=== PATIENT | male | born 1950 | race African-American/Black ===

== ENCOUNTER 2016-10-23 15:01 | Observation (INO) | payer MEDICARE, OTHER ==
[2016-10-23 15:09] VITALS: BMI 36.6
--- NOTE | 2016-10-23 15:21 | PDOC ---
History of Present Illness - General Chief Complaint: Nasal Bleeding Stated Complaint: NASAL BLEED Time Seen by Provider: 10/23/16 15:20 History Source: Patient - History of Present Illness Initial Comments: 10/23/16 15:44 CC: Acute onset of B/L epistaxis Patient is a 65 y.o. male with a PMH of B/L knee arthritis who presents to our facility today with a c/o of B/L epistaxis. Patient notes he was sitting at a chair in his workplace when he noticed his nose was bleeding. Patient denies any previous similar incidents as well as any recent facial trauma, lightheadedness, shortness of breath or chest pain. Patient notes he has no established PCP and has not seen a doctor for years. Past History - Past Medical History Allergies/Adverse Reactions: Allergies Allergy/AdvReac Type Severity Reaction Status Date / Time No Known Allergies Allergy Verified 10/23/16 15:06 Home Medications: Ambulatory Orders Aspirin Coated [Ecotrin -] 81 mg PO DAILY #30 tab 10/24/16 Nifedipine ER [Procardia XL -] 30 mg PO DAILY #30 tab 10/24/16 - Psycho/Social/Smoking Cessation Hx Anxiety: No Suicidal Ideation: No Smoking History: Never smoked Have you smoked in the past 12 months: No Information on smoking cessation initiated: No Hx Alcohol Use: No Drug/Substance Use Hx: No Substance Use Type: None Review of Systems - Review of Systems Constitutional: No: Chills, Diaphoresis, Fever, Unexplained wgt Loss HEENTM: No: Blurred Vision, Double Vision, Tinnitus, Hearing Loss Respiratory: No: Orthopnea, Shortness of Breath, Stridor, Wheezing Cardiac (ROS): No: See HPI, Chest Pain, Edema, Irregular Heart Rate, Lightheadedness ABD/GI: No: Constipated, Diarrhea Musculoskeletal: Yes: Joint Pain Neurological: No: Headache Psychiatric: No: Anxiety, Depression All Other Systems: Reviewed and Negative *Physical Exam - Vital Signs Last Vital Signs Temp Pulse Resp BP Pulse Ox 97.8 F 96 H 18 190/125 100 10/23/16 15:07 10/23/16 15:07 10/23/16 15:07 10/23/16 15:07 10/23/16 15:07 - Physical Exam General Appearance: Yes: Nourished, Appropriately Dressed HEENT: positive: EOMI, LYUDMILA, Other (B/L epistaxsis L > R) Neck: positive: Trachea midline, Supple Respiratory/Chest: positive: Lungs Clear, Normal Breath Sounds Cardiovascular: positive: Regular Rhythm, Regular Rate, S1, S2, Other (Minor systolic murmur appreciated in R 2nd intercostal space) Gastrointestinal/Abdominal: positive: Normal Bowel Sounds, Soft Extremity: positive: Normal Capillary Refill, Normal Inspection Integumentary: positive: Normal Color, Dry, Warm ED Treatment Course - LABORATORY CBC & Chemistry Diagram: 10/24/16 06:00 10/24/16 06:00 Medical Decision Making - Medical Decision Making 10/23/16 20:28 Patient is a 65 y.o. male with no known PMH and limited h/o primary medical care who presented to the ED c/o unremittent epistaxis L>R. During course of admission patient's bleeding resolved with pressure however was intermittently hypertensive (SBP 170's/DBP 90's-120's) and given Nifedipine (30 mg OTD). As patient had a uncertain medical history, broad cardiac work-up was pursued to rule out cardiac etiology. Labs were significant for CKMB 4.8 and CK of 1535 with a Troponin of 0.11. EKG showed T wave inversions in lateral leads and CXR showed no acute pathology. Bedside cardiac U/S showed normal contractility and likely L sided hypertrophy. Cardiology consulted and recommended inpatient admission. *DC/Admit/Observation/Transfer Diagnosis at time of Disposition: Elevated troponin - Discharge Dispostion Condition at time of disposition: Improved Admit: Yes - Prescriptions - Attestations Physician Attestion: 10/23/16 17:52 I attest that the procedures as documented in this note reflect my medical decision making. - Dr. Zayda Snow
--- NOTE | 2016-10-23 15:25 | PDOC ---
Attending Attestation - Resident Resident Name: Zayda Snow - ED Attending Attestation I have performed the following: I have examined & evaluated the patient, The case was reviewed & discussed with the resident, I agree w/resident's findings & plan, Exceptions are as noted - HPI HPI: 10/23/16 17:27 This is a 65 yo M presenting to the ER with epistaxis Left Nare No headache No chest pain No shortness of breath - Physicial Exam PE: 10/23/16 17:29 RRR (+) Left nare bleeding CTA No abd pain Left nare packed with gauze THis has stopped bleeding Pt has stable clot, no longer bleeding No blood noted in posterior pharynx Will hold for not with RhinoRocket - Medical Decision Making 10/23/16 17:26 Laboratory Tests 10/23/16 10/23/16 10/23/16 15:30 15:30 15:30 WBC 6.7 Hgb 15.7 Hct 46.6 Plt Count 219 INR 1.28 H BUN 22 H Creatinine 1.1 Creatine Kinase 1535 H CK-MB (CK-2) 4.859 H Troponin I 0.11 H No more nasal bleeding BP remains elevated 10/23/16 17:34 This is a 65 yo M who has had limited medical care presenting to the ER with epistaxis, HTN and elevated trop Placed on hospitalist service for further evaluation Heart Score/ECG Review - History History: Slightly suspicious - Electrocardiogram EKG: Normal - Age Age: >/= 65 - Risk Factors Risk Factors Heart Score: Yes Hx Hypertension, Yes Hx Obesity Based on the list above the patient has:: 1-2 risk factors - Troponin Troponin: 1-3x normal limit - Score Heart Score - Total: 4
[2016-10-23] MEDS ORDERED: SODIUM CHLORIDE 1,000 ML IV ONE (15:33)
[2016-10-23 15:52] LABS: BASOPHIL 0.7 % (0-2.0); EOSINOPHIL 1.1 % (0-4.5); MCHC 33.6 g/dl (32.0-35.9); MEAN CELL VOLUME 89.3 fl (80-96); NEUTROPHILS 53.2 % (42.8-82.8); PLATELET COUNT 219 K/MM3 (134-434); RDW 14.3 % (11.9-15.9); WHITE BLOOD COUNT 6.7 K/mm3 (4.0-10.0)
[2016-10-23] MEDS ORDERED: ACETAMINOPHEN 325 MG TABLET (FP) PO ONE (16:01)
[2016-10-23 16:08] LABS: INR 1.28 (0.82-1.09); PROTHROMBIN TIME (PATIENT) 14.1 SEC (9.98-11.88)
[2016-10-23 16:18] LABS: ALBUMIN 4.2 g/dl (3.4-5.0); ANION GAP 11 (8-16); BILIRUBIN,TOTAL 0.9 mg/dL (0.2-1.0); CALCIUM 9.5 mg/dL (8.5-10.1); CO2 28 mmol/L (21-32); CREATININE 1.1 mg/dL (0.7-1.3); GLUCOSE,RANDOM 95 mg/dL (74-106); SGOT/AST 41 U/L (15-37); SGPT/ALT 24 U/L (12-78); TOT PROT 7.4 g/dl (6.4-8.2)
[2016-10-23 16:30] LABS: ALK PHOS 68 U/L (45-117); TROPONIN I 0.11 ng/ml (0.00-0.05)
[2016-10-23 16:31] LABS: CPK 1535 IU/L (39-308)
[2016-10-23] MEDS ORDERED: PHENYLEPHRINE HCL 10 MG/1 ML SINGLE DOSE VIAL ONE (16:34)
[2016-10-23] MEDS ORDERED: NIFEdipine 10 MG CAPSULE (FP) ONE (16:49)
[2016-10-23] MEDS: NIFEdipine E.R. 30 MG TABLET (FP) PO SCH (16:51)
[2016-10-23] MEDS ORDERED: LABETALOL HCL 5 MG/1 ML (100MG/20 ML VIAL) IVPUSH ONE (17:26)
--- NOTE | 2016-10-23 19:08 | HP ---
Admitting History and Physical - Primary Care Physician PCP: No PCP - Admission Chief Complaint: Epistaxis History of Present Illness: 65 y.o. M with no known PMH presenting to the ED with epistaxis. Patient woke up this AM and took a motrin for knee OA. Patient went to work around 2 pm and took a midol. Patient began having profuse epistaxis. He tried to stop the bleeding on his own and since he was unable to, patient came to the ED. Patient denies any chest pain, shortness of breath, nausea, vomiting, diarrhea, headache , vision changes. Patient takes no other medications and takes no blood thinners. In the ER: - Patient was found to have hypertensive urgency and tachycardia - Patient was given labetolol and started on nifedipine - Bleeding was stopped. 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 History of Recent Travel: No Home Medications - Allergies Allergies/Adverse Reactions: Allergies Allergy/AdvReac Type Severity Reaction Status Date / Time No Known Allergies Allergy Verified 10/23/16 15:06 - Home Medications Home Medications: Ambulatory Orders NK [No Known Home Medication] 10/23/16 Family Disease History - Family Disease History Family History: Unremarkable Review of Systems - Review of Systems Constitutional: reports: No Symptoms Eyes: reports: No Symptoms HENT: reports: Epistaxis Neck: reports: No Symptoms Cardiovascular: reports: No Symptoms Respiratory: reports: No Symptoms Gastrointestinal: reports: No Symptoms Genitourinary: reports: No Symptoms Breasts: reports: No Symptoms Reported Musculoskeletal: reports: No Symptoms Integumentary: reports: No Symptoms Neurological: reports: No Symptoms Endocrine: reports: No Symptoms Hematology/Lymphatic: reports: Excessive Bleeding Psychiatric: reports: No Symptoms Physical Examination Vital Signs: Vital Signs Temperature 98.8 F 10/23/16 18:03 Pulse Rate 68 10/23/16 18:03 Respiratory Rate 20 10/23/16 18:03 Blood Pressure 113/67 10/23/16 18:09 O2 Sat by Pulse Oximetry (%) 98 10/23/16 18:03 Constitutional: Yes: Well Nourished, No Distress, Calm Eyes: Yes: WNL, Conjunctiva Clear, EOM Intact HENT: Yes: Atraumatic, Normocephalic, Epistaxis Neck: Yes: WNL, Supple, Trachea Midline Cardiovascular: Yes: WNL, Regular Rate and Rhythm, Murmur (Systolic Ejection Murmur over Right Sternal Border) Respiratory: Yes: WNL, Regular, CTA Bilaterally Gastrointestinal: Yes: WNL, Normal Bowel Sounds, Soft, Abdomen, Obese Musculoskeletal: Yes: WNL Extremities: Yes: WNL Peripheral Pulses: Left Radial: 2+, Right Radial: 2+, Left Doralis Pedis: 2+, Right Dorsalis Pedis: 2+ Integumentary: Yes: WNL Neurological: Yes: WNL, Alert, Oriented ...Motor Strength: WNL Psychiatric: Yes: WNL, Alert, Oriented Imaging - Results Chest X-ray: Report Reviewed EKG: Report Reviewed Assessment/Plan 65 y.o. M with no known PMH presented with epistaxis admitted for hypertensive urgency #Hypertensive Urgency -Admit to tele-obs -Given labetolol in ED -BP wnl -Continue nifedipine 30 mg po daily -Echocardiogram pending -Due to no known pmh and no pcp f/u, will get A1c, Lipid panel, and TSH -U tox pending -1st trop positive, Trending troponins and EKG -Will repeat cbc and hgb with troponins FEN/GI -None -wnl -Sodium Controlled Diet PPx: DVT- Heparin 5000 u bid GI- None Dispo: pending echo, labs, troponins. Cardiology will evaluate in the AM Visit type - Emergency Visit Emergency Visit: Yes ED Registration Date: 10/23/16 Care time: The patient presented to the Emergency Department on the above date and was hospitalized for further evaluation of their emergent condition. - New Patient This patient is new to me today: Yes Date on this admission: 10/23/16 - Critical Care Critical Care patient: No
--- NOTE | 2016-10-23 19:13 | PN ---
Teaching Attending Note Name of Resident: Marshal Munguia ATTENDING PHYSICIAN STATEMENT I saw and evaluated the patient. I reviewed the resident's note and discussed the case with the resident. I agree with the resident's findings and plan as documented. SUBJECTIVE:65yo M with no PMH c/o epistaxis. pt states he took motrin 800mg in the AM for ankle pain. several hours later he developed sudden onset of epistaxis. applying pressure did not resolve the bleeding which prompted him to come to the ER. noted in the ER for pt to have HTN. labetolol IVP and nifedipine 30mg was given with improvement. denies CP, blurred vision, SOB, dyspnea on exertion, N/V/C/D. has not seen a PMD in 20+years. does not take any medications (OTC or prescribed), denies illicit drug use epistaxis resolved in ER with direct pressure. pt refused nasal rocket OBJECTIVE: Last Vital Signs Temp Pulse Resp BP Pulse Ox 98.8 F 68 20 113/67 98 10/23/16 18:03 10/23/16 18:03 10/23/16 18:03 10/23/16 18:09 10/23/16 18:03 General NAD HEENT dried blood in the nares CV S1 S2 + systolic murmur Lungs CTA B/L no wheezing/rales/rhonchi Abdomen soft NT/ND obese Extremities no pedal edema ASSESSMENT AND PLAN: 65yo M with no PMH presented to the ER with epistaxis and found to have HTN 1. HTN urgency- tele observation. continuous cardiac monitoring. epistaxis likely due to uncontrolled HTN. now improved. EKG showing T wave inversions in V4-V6. trop 0.11. bedside echo showing hypertrophy but normal contractility. will consult cardiology, will trend cardiac enzymes and EKG Q6H. cont nifedipine. titrate to optimize control. start asa 81mg. check lipid panel, A1c and TSH. wound benefit from official echo. will need stress test inpatient vs outpatient per cardiology 2. Elevated CK- check myoglobin r/o rhabdo 3. JESSIKA- elevated troponin. possible dehydration. gentle hydration 4. +systolic murmur-no hx of murmur. obtain official echo 5. DVT ppx- EAM
[2016-10-23 19:59] LABS: MCH 29.9 pg (25.7-33.7); MCHC 33.8 g/dl (32.0-35.9); MEAN CELL VOLUME 88.4 fl (80-96); MEAN PLT VOLUME 8.2 fl (7.5-11.1); PLATELET COUNT 205 K/MM3 (134-434); RDW 14.4 % (11.9-15.9); WHITE BLOOD COUNT 6.9 K/mm3 (4.0-10.0)
--- NOTE | 2016-10-23 20:36 | HP ---
CHIEF COMPLAINT: epistaxis PCP: none HISTORY OF PRESENT ILLNESS: 65 yr old man with no medical follow-up presents with spontanous b/l nostril epistaxis since this afternoon. He sat down to drink coffee and felt a funny taste in his mouth and notes left nostril was bleeding, he was unable to stop it and was brought to the ED by a friend. Was taking NSAIDs for knee arthritic pain. he gets evaluated at work twice yearly with vision exam, heart/lung/abdomen exam with BP check yearly, was never told he had any problems. never been told he had a murmur. Denies facial trauma, noxious aerosolized chemical exposure, chest pain, sob, headache. ER course was notable for: (1) EKG with T-wave inversions in lateral leads (2) cxy: mild perihilar increased lung markings, mild elevation of the right hemidiapragm, no acute cardiopulmonary disease present Social History: denies toxic habits PHYSICAL EXAMINATION Vital Signs - 24 hr 10/23/16 10/23/16 10/23/16 18:03 18:09 19:32 Temperature 98.8 F 98.8 F Pulse Rate 87 Pulse Rate [ 68 Right Radial] Respiratory 20 18 Rate Blood Pressure 146/86 Blood Pressure 146/70 113/67 [Left Arm] O2 Sat by Pulse 98 99 Oximetry (%) GENERAL: Awake, alert, and fully oriented, in no acute distress. HEAD: Normal with no signs of trauma. EYES: Pupils equal, round and reactive to light, extraocular movements intact, sclera anicteric, conjunctiva clear. No lid lag. EARS, NOSE, THROAT: nares with dried blood b/l, oropharynx clear without exudates. dry mucous membranes. LUNGS: Breath sounds equal, clear to auscultation bilaterally. No wheezes, and no crackles. No accessory muscle use. HEART: Regular rate and rhythm, soft systolic murmur heard in the right upper sternal border and apex, ABDOMEN: Soft, nontender, +distended, normoactive bowel sounds, no guarding, no rebound, no masses. No hepatomegaly or splenomegaly. ASSESSMENT/PLAN: 65 yr old man with medical follow-up presents with epistaxis of unknown etiology , new onset heart murmur and EKG with t-wave inversions/elevated trops placed in observation for further evaluation. 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 - New Patient This patient is new to me today: Yes Date on this admission: 10/23/16 - Critical Care Critical Care patient: No
[2016-10-23] MEDS: ASPIRIN COATED 81 MG TABLET.EC PO SCH (21:13)
[2016-10-23] MEDS ORDERED: HEPARIN NA (PORCINE) 5,000 UNITS/ML 1ML VIAL SQ SCH (22:00)
[2016-10-23] MEDS ORDERED: SODIUM CHLORIDE 1,000 ML IV SCH (22:45)
[2016-10-23] MEDS: SODIUM CHLORIDE 1,000 ML IV SCH (23:43)
[2016-10-24] MEDS ORDERED: ACETAMINOPHEN 1000 MG/100 ML VIAL (NON FORMULARY) IVPB ONE (02:02)
[2016-10-24 02:18] LABS: URINE APPEARANCE CLEAR; URINE BILIRUBIN NEGATIVE (NEGATIVE); URINE BLOOD NEGATIVE (NEGATIVE); URINE COLOR YELLOW; URINE GLUCOSE (UA) NEGATIVE (NEGATIVE); URINE KETONE TRACE (NEGATIVE); URINE LEUK ESTERASE NEGATIVE (NEGATIVE); URINE NITRITE NEGATIVE (NEGATIVE); URINE PROTEIN NEGATIVE (NEGATIVE)
[2016-10-24 02:37] LABS: URINE MARIJUANA THC NEGATIVE ng/ml (CUTOFF=50)
[2016-10-24 02:55] LABS: TROPONIN I 0.11 ng/ml (0.00-0.05)
--- NOTE | 2016-10-24 07:08 | PN ---
Progress Note (short form) - Note Progress Note: currently asymptomatic.epistaxis resolved. continues to not have CP, SOB, fever , chills, N/V/C/D Current Medications Generic Name Dose Route Start Last Admin Trade Name Saray PRN Reason Stop Dose Admin Aspirin 81 mg 10/23/16 19:15 10/23/16 21:13 Ecotrin - PO 81 mg DAILY CHAY Administration Sodium Chloride 1,000 mls @ 100 mls/hr 10/23/16 22:45 10/23/16 23:43 Normal Saline - IV Not Given ASDIR CHAY Nifedipine 30 mg 10/23/16 16:45 10/23/16 16:51 Procardia Xl - PO 30 mg DAILY CHAY Administration Last Vital Signs Temp Pulse Resp BP Pulse Ox 98.4 F 68 18 147/86 99 10/24/16 06:00 10/24/16 06:00 10/24/16 06:00 10/24/16 06:00 10/23/16 19:32 General NAD HEENT no bleeding from nares CV S1 S2 + systolic murmur Lungs CTA B/L no wheezing/rales/rhonchi Abdomen soft NT/ND obese Extremities no pedal edema CBCD WBC 5.4 K/mm3 (4.0-10.0) 10/24/16 06:00 RBC 4.72 M/mm3 (4.00-5.60) 10/24/16 06:00 Hgb 14.1 GM/dL (11.7-16.9) 10/24/16 06:00 Hct 41.8 % (35.4-49) 10/24/16 06:00 MCV 88.5 fl (80-96) 10/24/16 06:00 MCHC 33.8 g/dl (32.0-35.9) 10/24/16 06:00 RDW 14.4 % (11.9-15.9) 10/24/16 06:00 Plt Count 191 K/MM3 (134-434) 10/24/16 06:00 MPV 8.1 fl (7.5-11.1) 10/24/16 06:00 CMP Sodium 138 mmol/L (136-145) 10/24/16 06:00 Potassium 4.0 mmol/L (3.5-5.1) 10/24/16 06:00 Chloride 103 mmol/L (98-107) 10/24/16 06:00 Carbon Dioxide 29 mmol/L (21-32) 10/24/16 06:00 Anion Gap 6 (8-16) L 10/24/16 06:00 BUN 19 mg/dL (7-18) H 10/24/16 06:00 Creatinine 0.8 mg/dL (0.7-1.3) D 10/24/16 06:00 Creat Clearance w eGFR > 60 (>60) 10/24/16 06:00 Calcium 9.1 mg/dL (8.5-10.1) 10/24/16 06:00 Total Bilirubin 0.9 mg/dL (0.2-1.0) 10/24/16 06:00 AST 29 U/L (15-37) D 10/24/16 06:00 ALT 22 U/L (12-78) 10/24/16 06:00 Alkaline Phosphatase 60 U/L (45-117) 10/24/16 06:00 Total Protein 6.4 g/dl (6.4-8.2) 10/24/16 06:00 Albumin 3.5 g/dl (3.4-5.0) 10/24/16 06:00 ASSESSMENT AND PLAN: 65yo M with no PMH presented to the ER with epistaxis and found to have HTN 1. HTN urgency-improved. troponin leak stable at 0.11. no ekg changes, no events on monitor. cont current management. will d/w cardio outpt vs inpatient cardiac workup as pt requesting to go home. 2. Elevated CK- likley rhabdo. trending down 3. JESSIKA- possible dehydration. resolved 4. +systolic murmur-no hx of murmur. obtain official echo 5. DVT ppx- EAM Visit type - Emergency Visit Emergency Visit: Yes ED Registration Date: 10/23/16 Care time: The patient presented to the Emergency Department on the above date and was hospitalized for further evaluation of their emergent condition. - New Patient This patient is new to me today: No - Critical Care Critical Care patient: No - Discharge Referral Referred to [facility] No
[2016-10-24 07:48] LABS: BASOPHIL 0.6 % (0-2.0); EOSINOPHIL 2.3 % (0-4.5); MCH 29.9 pg (25.7-33.7); MCHC 33.8 g/dl (32.0-35.9); MEAN CELL VOLUME 88.5 fl (80-96); MEAN PLT VOLUME 8.1 fl (7.5-11.1); NEUTROPHILS 55.1 % (42.8-82.8); PLATELET COUNT 191 K/MM3 (134-434); RDW 14.4 % (11.9-15.9); WHITE BLOOD COUNT 5.4 K/mm3 (4.0-10.0)
[2016-10-24 08:14] LABS: CHOLESTEROL 140 mg/dL (50-200); LDL CHOLESTEROL (ONLY SJRH) 79 mg/dL (5-100)
[2016-10-24 08:16] LABS: TROPONIN I 0.1 ng/ml (0.00-0.05)
[2016-10-24 08:24] LABS: ALBUMIN 3.5 g/dl (3.4-5.0); ALK PHOS 60 U/L (45-117); ANION GAP 6 (8-16); BILIRUBIN,TOTAL 0.9 mg/dL (0.2-1.0); CALCIUM 9.1 mg/dL (8.5-10.1); CO2 29 mmol/L (21-32); CREATININE 0.8 mg/dL (0.7-1.3); GLUCOSE,RANDOM 82 mg/dL (74-106); SGOT/AST 29 U/L (15-37); SGPT/ALT 22 U/L (12-78); TOT PROT 6.4 g/dl (6.4-8.2)
[2016-10-24] MEDS: NIFEdipine E.R. 30 MG TABLET (FP) PO SCH (09:02)
[2016-10-24] MEDS: ASPIRIN COATED 81 MG TABLET.EC PO SCH (09:03)
[2016-10-24] MEDS: SODIUM CHLORIDE 1,000 ML IV SCH ×2 (09:04→23:15)
--- NOTE | 2016-10-24 14:43 | CON.CARD ---
Cardiology Consult (text) - Consultation Consultation Note: CC: hypertensive urgency 65 yo with no significant pmhx presented for evaluation of epistaxis and found to have hypertensive urgency/abnormal cardiac enzymes. Ambulatory Orders Aspirin Coated [Ecotrin -] 81 mg PO DAILY #30 tab 10/24/16 Nifedipine ER [Procardia XL -] 30 mg PO DAILY #30 tab 10/24/16 Current Medications Aspirin (Ecotrin -) 81 mg PO DAILY [facility] Last Admin: 10/24/16 09:03 Dose: 81 mg Sodium Chloride (Normal Saline -) 1,000 mls @ 100 mls/hr IV ASDIR [facility] Last Admin: 10/24/16 09:04 Dose: 100 mls/hr Nifedipine (Procardia Xl -) 30 mg PO DAILY [facility] Last Admin: 10/24/16 09:02 Dose: 30 mg Vital Signs - 24 hr 10/23/16 10/23/16 10/23/16 15:07 18:03 18:09 Temperature 97.8 F 98.8 F Pulse Rate 96 H Pulse Rate [ 68 Right Radial] Respiratory 18 20 Rate Blood Pressure 190/125 Blood Pressure 146/70 113/67 [Left Arm] O2 Sat by Pulse 100 98 Oximetry (%) 10/23/16 10/24/16 10/24/16 19:32 02:00 06:00 Temperature 98.8 F 98.3 F 98.4 F Pulse Rate 87 79 68 Pulse Rate [ Right Radial] Respiratory 18 18 18 Rate Blood Pressure 146/86 129/77 147/86 Blood Pressure [Left Arm] O2 Sat by Pulse 99 Oximetry (%) 10/24/16 10/24/16 07:53 08:00 Temperature 98.1 F Pulse Rate 70 Pulse Rate [ Right Radial] Respiratory 18 20 Rate Blood Pressure 158/90 Blood Pressure [Left Arm] O2 Sat by Pulse 96 Oximetry (%) Intake & Output 10/22/16 10/23/16 10/24/16 10/25/16 07:59 07:59 07:59 07:59 Intake Total 75 Balance 75 Weight 270 lb CBC, BMP 10/24/16 06:00 10/24/16 06:00 Laboratory Tests 10/23/16 10/23/16 10/23/16 15:30 15:30 19:30 INR 1.28 H Hemoglobin A1c % Total Bilirubin 0.9 AST 41 H ALT 24 Alkaline Phosphatase 68 Creatine Kinase 1535 H CK-MB (CK-2) 4.859 H Troponin I 0.11 H 0.11 H Albumin Triglycerides Cholesterol Total LDL Cholesterol HDL Cholesterol TSH 10/24/16 10/24/16 10/24/16 01:30 06:00 06:00 INR Hemoglobin A1c % Total Bilirubin AST ALT Alkaline Phosphatase Creatine Kinase 1072 H CK-MB (CK-2) 4.515 H Troponin I 0.11 H Albumin 3.5 Triglycerides 60 Cholesterol 140 Total LDL Cholesterol 79 HDL Cholesterol 48 TSH 0.90 10/24/16 10/24/16 06:00 06:00 INR Hemoglobin A1c % 6.0 Total Bilirubin AST ALT Alkaline Phosphatase Creatine Kinase 886 H CK-MB (CK-2) 3.912 H Troponin I 0.10 H Albumin Triglycerides Cholesterol Total LDL Cholesterol HDL Cholesterol TSH tele ekg 10/23, 10/24. SR pac's. prolonged qtc, anterolateral twi's. hypertensive urgency abnormal cardiac enzymes prolonged qt - abnormal telemetery with frequent pac's. If bp remains elevated will start coreg tonight. Monitor for arrhythmia on telemetery - will likely not need stress test, but may need echo.
--- NOTE | 2016-10-24 14:46 | EKG ---
Test Reason : Blood Pressure : / mmHG Vent. Rate : 098 BPM Atrial Rate : 098 BPM P-R Int : 180 ms QRS Dur : 092 ms QT Int : 386 ms P-R-T Axes : 053 036 134 degrees QTc Int : 492 ms SINUS RHYTHM WITH PREMATURE ATRIAL COMPLEXES T WAVE ABNORMALITY, CONSIDER LATERAL ISCHEMIA PROLONGED QT ABNORMAL ECG NO PREVIOUS ECGS AVAILABLE Confirmed by TOREY DONNELLY MD ([id number]) on 10/24/2016 2:46:10 PM Referred By: Confirmed By:TOREY DONNELLY MD
--- NOTE | 2016-10-24 14:48 | EKG ---
Test Reason : Blood Pressure : / mmHG Vent. Rate : 092 BPM Atrial Rate : 092 BPM P-R Int : 000 ms QRS Dur : 104 ms QT Int : 402 ms P-R-T Axes : 073 052 143 degrees QTc Int : 497 ms SINUS RHYTHM WITH PREMATURE ATRIAL COMPLEXES T WAVE ABNORMALITY, CONSIDER ANTEROLATERAL ISCHEMIA PROLONGED QT ABNORMAL ECG WHEN COMPARED WITH ECG OF 23-OCT-2016 17:34, NO SIGNIFICANT CHANGE WAS FOUND Confirmed by CONY SCHNEIDER, TOREY ([id number]) on 10/24/2016 2:48:24 PM Referred By: Arnav APONTE Confirmed By:TOREY DONNELLY MD
[2016-10-24] MEDS: CARVEDILOL 3.125 MG TABLET (FP) PO SCH (23:16)
[2016-10-25] MEDS ORDERED: NIFEdipine E.R 60 MG TABLET (UD) PO SCH ×2 (08:15→08:30)
[2016-10-25 08:24] LABS: ANION GAP 6 (8-16); CO2 27 mmol/L (21-32); GLUCOSE,RANDOM 81 mg/dL (74-106)
[2016-10-25 08:27] LABS: CREATININE 0.9 mg/dL (0.7-1.3)
[2016-10-25] MEDS: CARVEDILOL 3.125 MG TABLET (FP) PO SCH (09:23)
[2016-10-25] MEDS: ASPIRIN COATED 81 MG TABLET.EC PO SCH (09:23)
[2016-10-25 09:25] VITALS: BP 180/74; PULSE 98; TEMP 98.7
--- NOTE | 2016-10-25 12:28 | DS ---
Physical Exam: SUBJECTIVE: Patient seen and examined. asymptomatic. denies CP, SOB< fever, chills, epistaxis, N/V/C/D OBJECTIVE: Vital Signs Period Temp Pulse Resp BP Sys/Mccarthy Pulse Ox Last 24 Hr 97.8 F-98.7 F 66-98 17-20 151-180/74-109 96 PHYSICAL EXAM GENERAL: The patient is awake, alert, and fully oriented, in no acute distress. HEAD: Normal with no signs of trauma. EYES: PERRL, extraocular movements intact, sclera anicteric, conjunctiva clear. ENT: Ears normal, nares patent, oropharynx clear without exudates, moist mucous membranes. NECK: Trachea midline, full range of motion, supple. LUNGS: Breath sounds equal, clear to auscultation bilaterally, no wheezes, no crackles, no accessory muscle use. HEART: Regular rate and rhythm, S1, S2 without rub or gallop. +murmur ABDOMEN: Soft, nontender, nondistended, normoactive bowel sounds, no guarding, no rebound, no hepatosplenomegaly, no masses. EXTREMITIES: 2+ pulses, warm, well-perfused, no edema. NEUROLOGICAL: Cranial nerves II through XII grossly intact. Normal speech, gait not observed. PSYCH: Normal mood, normal affect. SKIN: Warm, dry, normal turgor, no rashes or lesions noted. LABS Laboratory Results - last 24 hr 10/25/16 06:30 Sodium 138 Potassium 4.1 Chloride 105 Carbon Dioxide 27 Anion Gap 6 L BUN 14 D Creatinine 0.9 Random Glucose 81 Calcium 9.0 Magnesium 2.0 HOSPITAL COURSE: Date of Admission:10/23/16 Date of Discharge: 10/25/16 Admitting diagnosis: HTN urgency, Epistaxis, systolic murmur, troponin leak Pre hospital course 65 y.o. M with no known PMH presenting to the ED with epistaxis. Patient woke up this AM and took a motrin for knee OA. Patient went to work around 2 pm and took a midol. Patient began having profuse epistaxis. He tried to stop the bleeding on his own and since he was unable to, patient came to the ED. Patient denies any chest pain, shortness of breath, nausea, vomiting, diarrhea, headache , vision changes. Patient takes no other medications and takes no blood thinners. Subsequent hospital course Tele observation. pt had no CP during hospital stay. BP controlled on nifedipine and coreg. epistxis resolved on its own (refused nasal rocket and not a candidate for phenylephrine). and started on asa. troponin leak likely due to HTN peak at 0.11. multiple PVC noted on monitor technician, no abnormal rhythms. cardio evaluated. pt requested to go home with the agreement he would follow up with a doctor in the next 48H for BP check. also understands will need echo to further evaluate murmur. d/c home. Minutes to complete discharge: 40 Discharge Summary Reason For Visit: ELEVATED TROPONIN Current Active Problems Elevated troponin (Acute) Epistaxis not due to trauma (Acute) Hypertensive urgency (Acute) Murmur, heart (Acute) Condition: Improved - Instructions Diet, Activity, Other Instructions: You were admitted to the hospital due your high blood pressure which put some strain on your heart. You have been started on medications for your high blood pressure and medication to protect your heart. Take these medications everyday. Follow a low salt diet You need to see a primary care doctor regularly. Information on one in the area has been provided. See them next week,. you will likely require further adjustment to your medication, You will also need an echocardiogram to assess your heart function. IF you develop chest pain or shortness of breath return to the ER immediately Referrals: Long Ko MD [Staff Physician] - 1 Week (primary care ) - Home Medications Comprehensive Discharge Medication List: Ambulatory Orders Aspirin Coated [Ecotrin -] 81 mg PO DAILY #30 tab 10/24/16 Carvedilol [Coreg -] 3.125 mg PO BID #60 tablet 10/25/16 Nifedipine ER [Procardia XL -] 60 mg PO DAILY #30 tab 10/25/16 This patient is new to me today: No Emergency Visit: Yes ED Registration Date: 10/23/16 Care time: The patient presented to the Emergency Department on the above date and was hospitalized for further evaluation of their emergent condition. Critical Care patient: No - Discharge Referral Referred to [facility] Yes Physician Referral: Long Panchal MD ([facility])
== END 2016-10-25 13:55 | disposition home or self-care (01) ==
LOC: JER 15:01 → JERBED 17:53 → J4W 19:10
PROVIDERS: ADMIT Internal Medicine; ATTEND Internal Medicine
PROC: 2Y41X5Z Packing of Nasal Region using Packing Material (ICD-10-PCS; principal; 2016-10-23)
PROC: 3E033NZ Introduction of Analgesics, Hypnotics, Sedatives into Peripheral Vein, Percutaneous Approach (ICD-10-PCS; 2016-10-23)
PROC: 3E033GC Introduction of Other Therapeutic Substance into Peripheral Vein, Percutaneous Approach (ICD-10-PCS; 2016-10-23)
PROC: 3E0337Z Introduction of Electrolytic and Water Balance Substance into Peripheral Vein, Percutaneous Approach (ICD-10-PCS; 2016-10-23)
DX: I16.0 Hypertensive urgency (principal); R79.89 Other specified abnormal findings of blood chemistry; R04.0 Epistaxis; I10 Essential (primary) hypertension; M17.0 Bilateral primary osteoarthritis of knee; N17.9 Acute kidney failure, unspecified; R01.1 Cardiac murmur, unspecified; Z79.82 Long term (current) use of aspirin
CPT/HCPCS: 36415; 71010-TC; 80048; 80053; 80061; 80307; 81003; 82553; 83036; 83721; 83735; 83874; 84443; 84484; 85025; 85027; 85610; 86850; 86900; 86901; 93005; 93010; 99282-25; G0378

== ENCOUNTER 2018-04-14 12:35 | Emergency (ER) | payer OTHER ==
[2018-04-14 12:43] VITALS: TEMP 97.8; BMI 33.9
[2018-04-14] MEDS ORDERED: amLODIPine BESYLATE 5 MG TABLET (FP) PO ONE (13:39)
[2018-04-14] MEDS ORDERED: amLODIPine BESYLATE 5 MG TABLET (FP) ONE (13:49)
--- NOTE | 2018-04-14 13:50 | PDOC ---
History of Present Illness - General History Source: Patient Exam Limitations: No Limitations <Mayra Payne - Last Filed: 04/14/18 16:18> <Leti Melton - Last Filed: 04/14/18 19:05> - General Chief Complaint: Nasal Bleeding Stated Complaint: NOSE BLEED Time Seen by Provider: 04/14/18 13:21 Past History - Past Medical History COPD: No HTN: Yes - Immunization History Immunization Up to Date: Yes - Suicide/Smoking/Psychosocial Hx Smoking History: Never smoked Have you smoked in the past 12 months: No Hx Alcohol Use: No Drug/Substance Use Hx: No Substance Use Type: None <Mayra Payne - Last Filed: 04/14/18 16:18> <Leti Melton - Last Filed: 04/14/18 19:05> - Past Medical History Allergies/Adverse Reactions: Allergies Allergy/AdvReac Type Severity Reaction Status Date / Time No Known Allergies Allergy Verified 04/14/18 12:39 Home Medications: Ambulatory Orders Aspirin Coated [Ecotrin -] 81 mg PO DAILY #30 tab 10/24/16 Carvedilol [Coreg -] 3.125 mg PO BID #60 tablet 10/25/16 Nifedipine ER [Procardia XL -] 60 mg PO DAILY #30 tab 10/25/16 Cephalexin Monohydrate [Keflex -] 500 mg PO BID #14 capsule 04/14/18 *Physical Exam - Vital Signs Last Vital Signs Temp Pulse Resp BP Pulse Ox 97.8 F 104 H 17 201/104 H 0 L 04/14/18 12:39 04/14/18 12:39 04/14/18 12:39 04/14/18 12:39 04/14/18 12:39 - Physical Exam General Appearance: No: Apparent Distress HEENT: positive: Other (+nasal bleeding from both nares, unable to find location of bleed; small amount of blood in posterior pharynx) Respiratory/Chest: positive: Lungs Clear, Normal Breath Sounds. negative: Respiratory Distress Cardiovascular: positive: Regular Rhythm, Regular Rate, S1, S2. negative: Murmur Neurologic: positive: Alert, Normal Mood/Affect <Mayra Payne - Last Filed: 04/14/18 16:18> - Vital Signs Last Vital Signs Temp Pulse Resp BP Pulse Ox 97.8 F 80 18 155/81 98 04/14/18 12:39 04/14/18 16:38 04/14/18 16:38 04/14/18 16:38 04/14/18 16:38 <Leti Melton - Last Filed: 04/14/18 19:05> Moderate Sedation - Procedure Monitoring Vital Signs: Procedure Monitoring Vital Signs Temperature 97.8 F 04/14/18 12:39 Pulse Rate 104 H 04/14/18 12:39 Respiratory Rate 17 04/14/18 12:39 Blood Pressure 201/104 H 04/14/18 12:39 O2 Sat by Pulse Oximetry (%) 0 L 04/14/18 12:39 <Mayra Payne - Last Filed: 04/14/18 16:18> - Procedure Monitoring Vital Signs: Procedure Monitoring Vital Signs Temperature 97.8 F 04/14/18 12:39 Pulse Rate 80 04/14/18 16:38 Respiratory Rate 18 04/14/18 16:38 Blood Pressure 155/81 04/14/18 16:38 O2 Sat by Pulse Oximetry (%) 98 04/14/18 16:38 <Leti Melton - Last Filed: 04/14/18 19:05> Procedures - Additional Procedures Progress: 04/14/18 19:03 epistaxis control, left nare with rhino rocket. topical analgesia and afrin spray. pt tolerated well, bleeding controlled oral abx keflex for TSS ppx. ENT referral <Leti Melton - Last Filed: 04/14/18 19:05> ED Treatment Course - LABORATORY CBC & Chemistry Diagram: 04/14/18 14:33 <Mayra Payne - Last Filed: 04/14/18 16:18> - LABORATORY CBC & Chemistry Diagram: 04/14/18 14:33 - ADDITIONAL ORDERS Additional order review: 04/14/18 14:33 RBC 3.98 L MCV 88.6 MCHC 34.3 RDW 14.4 MPV 7.8 Neutrophils % 70.2 D Lymphocytes % 20.7 D Monocytes % 7.0 Eosinophils % 1.1 Basophils % 1.0 - Medications Given in the ED: ED Medications Discontinued Medications Generic Name Dose Route Start Last Admin Trade Name Freq PRN Reason Stop Dose Admin Amlodipine Besylate 5 mg 04/14/18 13:39 04/14/18 14:06 Norvasc - PO 04/14/18 13:40 Not Given ONCE ONE Cephalexin HCl 500 mg 04/14/18 14:37 04/14/18 16:05 Keflex - PO 04/14/18 14:38 500 mg ONCE ONE Administration Lidocaine HCl 1 ml 04/14/18 14:01 04/14/18 14:09 Xylocaine 1% INF 04/14/18 14:02 1 ml ONCE ONE Administration Lidocaine/Epinephrine 1 ml 04/14/18 14:04 04/14/18 14:09 Xylocaine 1%-Epi 1:100,000 INF 04/14/18 14:05 1 ml ONCE ONE Administration Oxymetazoline HCl 1 spray 04/14/18 14:01 04/14/18 14:09 Afrin - NS 04/14/18 14:02 1 spray ONCE ONE Administration <Leti Melton - Last Filed: 04/14/18 19:05> Medical Decision Making - Medical Decision Making 67 y/o M with hx of HTN (not on meds) presents with L nare epistaxis that started spontaneously at 12 PM today. Denies trauma, picking nose, sob, cp, n/v , dizziness. Patient is not on any blood thinners. Bleeding starting to improve with pressure Patient also given ice pack Advised to blow out nose and will recheck to see if I can see the area where bleeding is coming from 04/14/18 13:51 After blowing nose, patient had profuse bleeding from L nare Bleeding controlled with nasal packing CBC done shows stable Hgb/Hct Patient given Keflex Repeat BP was 165/96, HR 89 Will refer to ENT Stable for dc 04/14/18 16:18 <Mayra Payne - Last Filed: 04/14/18 16:18> - Medical Decision Making agree with midlevel note as documented face to face eval was made 67 YOM with epistaxis. vitals noted for hypertension, but also presenting with epistaxis H/H stable rhino rocket placed in left nare, hemostasis achieved. topical afrin sprays and lido/epi, good effect keflex x 5 days ENT referral given. repeat VS normalizing, no indication to start meds, f/u HTN with primary return precautions given. avoid triggers for nosebleed. 04/14/18 19:04 <Leti Melton - Last Filed: 04/14/18 19:05> *DC/Admit/Observation/Transfer - Discharge Dispostion Decision to Admit order: No <Mayra Payne - Last Filed: 04/14/18 16:18> <Leti Melton - Last Filed: 04/14/18 19:05> Diagnosis at time of Disposition: Epistaxis - Discharge Dispostion Disposition: HOME Condition at time of disposition: Improved - Prescriptions Prescriptions: Cephalexin Monohydrate [Keflex -] 500 mg PO BID #14 capsule - Referrals Referrals: Amari Alicea MD [Staff Physician] - Call tomorrow Carmelita Grimes MD [Provisional Medical Staff] - 2 Days - Patient Instructions Printed Discharge Instructions: DI for Nosebleed Additional Instructions: Thank you for choosing [facility]. It was a pleasure taking care of you. You had nasal packing done for nosebleed Please take the antibiotics as prescribed Follow-up with ENT tomorrow You were also referred to PCP for further monitoring of your blood pressure. Return to the Emergency Department if your symptoms worsen or persist or have other concerning symptoms. - Post Discharge Activity Forms/Work/School Notes: Back to Work
[2018-04-14] MEDS ORDERED: OXYMETAZOLINE 0.05% NASAL SOLUTION 15 ML BOTTLE NS ONE (14:01)
[2018-04-14] MEDS ORDERED: LIDOCAINE HCL 1%, 10 MG/ML (50 mL VIAL) INF ONE (14:01)
[2018-04-14] MEDS ORDERED: LIDOCAINE 1%/EPI 1:100000 (20 ML MULTI DOSE VIAL) INF ONE (14:04)
[2018-04-14] MEDS ORDERED: LIDOCAINE HCL 1%, 10 MG/ML (20ML VIAL) ONE (14:06)
[2018-04-14] MEDS ORDERED: LIDOCAINE 1%/EPI 1:100000 (20 ML MULTI DOSE VIAL) ONE (14:07)
[2018-04-14] MEDS ORDERED: CEPHALEXIN MONOHYDRATE 500 MG CAPSULE (UD) PO ONE (14:37)
[2018-04-14 14:42] LABS: EOS % 1.1 % (0-4.5); HEMATOCRIT 35.2 % (35.4-49); HEMOGLOBIN 12.1 GM/dL (11.7-16.9); LYMPH % 20.7 % (8-40); MCH 30.4 pg (25.7-33.7); MCHC 34.3 g/dl (32.0-35.9); MEAN CELL VOLUME 88.6 fl (80-96); MEAN PLT VOLUME 7.8 fl (7.5-11.1); NEUT % 70.2 % (42.8-82.8); PLATELET COUNT 231 K/MM3 (134-434); RBC 3.98 M/mm3 (4.00-5.60); RDW 14.4 % (11.9-15.9); WHITE BLOOD COUNT 6.6 K/mm3 (4.0-10.0)
[2018-04-14] MEDS ORDERED: CEPHALEXIN MONOHYDRATE 500 MG CAPSULE (UD) ONE (16:09)
[2018-04-14 16:58] VITALS: BP 155/81; PULSE 80
== END 2018-04-14 16:37 | disposition home or self-care (01) ==
LOC: JER 12:35
PROC: 2Y41X5Z Packing of Nasal Region using Packing Material (ICD-10-PCS; principal; 2018-04-14)
DX: I10 Essential (primary) hypertension (principal); R04.0 Epistaxis
CPT/HCPCS: 36415; 85025; 99282-25